=== PATIENT | female | born 1975 | race Caucasian/White ===

== ENCOUNTER 2019-01-16 14:09 | Inpatient (IN) | payer OTHER ==
[~2019-01-16] VITALS: Ht 157.5 cm; Wt 88.9 kg
[~2019-01-16 14:09] MED LIST: FERROUS SULFAT325 MG PO; TORADOL10 MG PO; VIBRAMYCIN 100100 MG PO
[2019-01-16 16:02] LABS: HEMATOCRIT 39.4 % (36.0-48.0); HEMOGLOBIN 13.6 g/dL (12-16); MCH 30.4 pg (26.0-34.0); MCHC 34.5 g/dL (31.0-37.0); MCV 88.1 fL (80.0-100.0); MEAN PLATELET VOLUME 9.2 fL (7.4-10.4); PLATELET COUNT 192 10x3/uL (130-400); RBC 4.47 10x6/uL (4.00-5.40); RDW 12.5 % (11.5-14.5); WBC 21.1 10x3/uL (4.8-10.8)
[2019-01-16 16:36] LABS: EOSINOPHILS 1 % (0-7); LYMPHOCYTES 8 % (15-50); MONOCYTES 5 % (2-11); NEUTROPHILS 86 % (40-80); PLATELET ESTIMATE NORMAL
[2019-01-16 17:57] LABS: ALBUMIN 2.8 g/dL (3.4-5.0); ALKALINE PHOSPHATASE 46 U/L (46-116); ALT (SGPT) 31 U/L (10-68); BILIRUBIN - TOTAL 0.54 mg/dL (0.2-1.3); CALC OSMOLALITY 262 mosm/kg (275-300); CALCIUM 7.5 mg/dL (8.5-10.1); CARBON DIOXIDE 30.1 mmol/L (21.0-32.0); CHLORIDE - SERUM 96 mmol/L (98-107); CREATININE - SERUM 0.6 mg/dL (0.6-1.3); GLUCOSE 82 mg/dL (74-106); PROTEIN - SERUM 5.7 g/dL (6.4-8.2); SODIUM 132 mmol/L (136-145); UREA NITROGEN 11 mg/dL (7-18); eGFR NON AFRICAN AMERICAN > 90 mL/min (90-120)
[2019-01-16 19:54] VITALS: BP 134/77; BMI 35.9
[2019-01-16 20:00] VITALS: BP 110/64
--- NOTE | 2019-01-16 20:00 | NUR ---
ASSESSMENT PER FLOWSHEET. IV PATENT LEFT WRIST WITH LR AT 100CC'S/HR. SITE CLEAR. CYST NOTED TO SCARUM. NO DRAINAGE SEEN FAMILY MEMBERS AT BEDSIDE. SR UP X1 CALL LIGHT WITHIN REACH.
--- NOTE | 2019-01-16 20:42 | NUR ---
C/O PAIN SACRAL AREA. RATES PAIN LEVEL #8. SET UP WIRE TWISTING MACHINE OPERATOR OF DILAUDID WITH SETTINGS AT 0.2MG Q10MIN W/4MG Q4HR L/O. INSTRUCTED PATIENT ON USE OF WIRE TWISTING MACHINE OPERATOR. VERBALIZED UNDERSTANDING.
--- NOTE | 2019-01-16 22:00 | NUR ---
FAMILY MEMBERS STATES PAIN MED IS WORKING WELL.
[2019-01-17] VITALS (7 sets, daily range): BP systolic 107–147; BP diastolic 56–82
--- NOTE | 2019-01-17 | NUR ---
NPO FOR SURGERY IN AM.
[2019-01-17 06:34] LABS: BASOPHILS 0 % (0-2); EOSINOPHILS 0.5 % (0-7); HEMOGLOBIN 14.3 g/dL (12-16); IMMATURE GRANULOCYTES 0.6 % (0-5); LYMPHOCYTES 5.9 % (15-50); MCH 30.6 pg (26.0-34.0); MCV 89.7 fL (80.0-100.0); MEAN PLATELET VOLUME 9.4 fL (7.4-10.4); MONOCYTES 6.7 % (2-11); NEUTROPHILS 86.3 % (40-80); PLATELET COUNT 222 10x3/uL (130-400); RBC 4.68 10x6/uL (4.00-5.40); RDW 12.8 % (11.5-14.5)
--- NOTE | 2019-01-17 06:42 | NUR ---
REMAINS NPO FOR SURGERY.
[2019-01-17 07:00] LABS: ALBUMIN 2.7 g/dL (3.4-5.0); ALKALINE PHOSPHATASE 53 U/L (46-116); ALT (SGPT) 30 U/L (10-68); BILIRUBIN - TOTAL 0.93 mg/dL (0.2-1.3); CALC OSMOLALITY 259 mosm/kg (275-300); CALCIUM 8.3 mg/dL (8.5-10.1); CARBON DIOXIDE 29.3 mmol/L (21.0-32.0); CHLORIDE - SERUM 94 mmol/L (98-107); CREATININE - SERUM 0.6 mg/dL (0.6-1.3); GLUCOSE 93 mg/dL (74-106); POTASSIUM - SERUM 4.4 mmol/L (3.5-5.1); PROTEIN - SERUM 6.6 g/dL (6.4-8.2); SODIUM 130 mmol/L (136-145); UREA NITROGEN 10 mg/dL (7-18); eGFR NON AFRICAN AMERICAN > 90 mL/min (90-120)
--- NOTE | 2019-01-17 07:10 | NUR ---
ALERT AND ORIENTED, RESTING IN BED. FAMILY AT BEDSIDE. PT NPO, SURGERY SCHEDULED TODAY. IV TO LEFT WRIST, LR INFUSING @ 100ML/HR. NO C/O PAIN, DILAUDID INSOLE DOUBLER MANAGING PAIN. UP AD MORGAN. PT DENIES ANY NEEDS AT THIS TIME. CALL LIGHT IN REACH. WILL CONTINUE TO MONITOR.
--- NOTE | 2019-01-17 08:34 | NUR ---
HIBICLENSE BATH DONE BY THIS NURSE. CONSENTS SIGNED ALSO.
--- NOTE | 2019-01-17 18:44 | NUR ---
ALERT AND ORIENTED, RESTING IN BED. NO C/O PAIN. DILAUDID RESEARCH ASSOCIATE MANAGING PAIN. NO S/S OF ACUTE DISTRESS NOTED. PT DENIES ANY NEEDS. CALL LIGHT IN REACH. WILL CONTINUE TO MONITOR.
[2019-01-18 02:02] VITALS: BP 141/82
[2019-01-18 05:04] VITALS: BP 132/76
[2019-01-18 06:46] LABS: BASOPHILS 0 % (0-2); EOSINOPHILS 0.6 % (0-7); HEMATOCRIT 36.1 % (36.0-48.0); HEMOGLOBIN 12.3 g/dL (12-16); IMMATURE GRANULOCYTES 0.5 % (0-5); LYMPHOCYTES 3.9 % (15-50); MCH 30.5 pg (26.0-34.0); MCHC 34.1 g/dL (31.0-37.0); MCV 89.6 fL (80.0-100.0); MEAN PLATELET VOLUME 9.3 fL (7.4-10.4); MONOCYTES 4.9 % (2-11); NEUTROPHILS 90.1 % (40-80); PLATELET COUNT 202 10x3/uL (130-400); RBC 4.03 10x6/uL (4.00-5.40); RDW 12.7 % (11.5-14.5)
[2019-01-18 07:18] LABS: ALBUMIN 2.4 g/dL (3.4-5.0); ALKALINE PHOSPHATASE 56 U/L (46-116); ALT (SGPT) 26 U/L (10-68); CALCIUM 8.3 mg/dL (8.5-10.1); CARBON DIOXIDE 29.9 mmol/L (21.0-32.0); CHLORIDE - SERUM 97 mmol/L (98-107); CREATININE - SERUM 0.7 mg/dL (0.6-1.3); GLUCOSE 119 mg/dL (74-106); PROTEIN - SERUM 6.5 g/dL (6.4-8.2); SODIUM 133 mmol/L (136-145); eGFR NON AFRICAN AMERICAN > 90 mL/min (90-120)
[2019-01-18 07:21] LABS: CALC OSMOLALITY 264 mosm/kg (275-300); UREA NITROGEN 7 mg/dL (7-18); WBC 15.4 10x3/uL (4.8-10.8)
[2019-01-18 07:22] LABS: POTASSIUM - SERUM 3.6 mmol/L (3.5-5.1)
--- NOTE | 2019-01-18 08:00 | NUR ---
ASSESSMENT PER FLOW SHEET. PT IS WITHOUT DISTRESS.MONITOR FOR NEEDS.
--- NOTE | 2019-01-18 08:04 | NUR ---
IV TENDER WITH SWELLING NOTED.IV OUT PER PT REQUEST,CATH TIP INTACT.PT LEFT UNIT WITH VIA WHEELCHAIR
--- NOTE | 2019-01-18 08:20 | NUR ---
BACK ON UNIT IN ROOM.
[2019-01-18 09:37] VITALS: BP 127/87
--- NOTE | 2019-01-18 10:00 | NUR ---
UNABLE TO GET IV RESITE.CALL TO [facility] WITH VASCULAR
--- NOTE | 2019-01-18 11:02 | NUR ---
NIK[facility]AY UNABLE TO PLACE IV.
--- NOTE | 2019-01-18 11:36 | OP ---
PATIENT NAME: YAMIL IRVING MEDICAL RECORD: [id number] :[birth year] LOCATION:D.[id number] ADMISSION DATE:01/16/19 SURGEON: LOUISA MURILLO MD DATE OF OPERATION: 01/17/2019 PREOPERATIVE DIAGNOSIS: Infected pilonidal cyst with abscess. POSTOPERATIVE DIAGNOSIS: Infected pilonidal cyst with abscess. PROCEDURE: Incision and drainage of pilonidal abscess. SURGEON: Louisa Murillo MD REPORT OF PROCEDURE: The patient was placed in the right lateral decubitus position. The perianal and gluteal regions were prepped and draped in sterile fashion. There is already an area of purulent drainage coming from the superior aspect of the gluteal fold. We probed this with culturettes times 2. We could see that this was extending superiorly, so we opened this up over the suction using electrocautery. Once inside, there was noted to be a large pocket present, which did not appear to track anywhere else deep in the tissues. This open pocket was irrigated out thoroughly with peroxide and saline solution. I did not see any evidence of any distinct cystic cavity, but the tissue was very inflamed and there was a lot of oozing from skin and surrounding tissues itself. We applied pressure to the area and treated the skin bleeding with electrocautery. At the conclusion, we packed the wound with peroxide-soaked Kerlix and dressed it with 4 x 4s and an ABD pad. COMPLICATIONS: None. CONDITION: Stable. ANESTHESIA: General endotracheal. BLOOD LOSS: 50 mL. TRANSINT:[id number] Voice Confirmation ID: [id number] DOCUMENT ID: [id number] LOUISA MURILLO MD at 1136 CC: [id number] DICTATION DATE: 01/17/19 1556 FANS CLERK: 01/17/19 1853 ADM IN [facility] [address] [place] [address]
[2019-01-18 13:07] VITALS: BP 111/64
--- NOTE | 2019-01-18 14:39 | MORECARE ---
CASE MANAGEMENT DISCHARGE SUMMARY PATIENT: YAMIL IRVING PAT UNIT: [id number] ADM DATE: 01/16/19 AGE: 43 : [birth year] SEX: F ROOM/BED: D.2219 AUTHOR: CARYDOC PHYSICIAN: REFERRING PHYSICIAN: RYAN ROY MD DATE OF SERVICE: 01/18/19 Discharge Plan Patient Name: YAMIL IRVING Facility: [facility]:[place] : 1975 Planned Disposition: Home Anticipated Discharge Date: Discharge Date: Expected LOS: Initial Reviewer: [id number] Initial Review Date: 01/16/2019 Generated: 01/18/19 3:39 pm Comments DCP- Discharge Planning Updated by [email or web address]: Sarina Kaufman on 01/18/19 1:[address] Patient Name: YAMIL IRVING Admission Status: Elective Accout number: [id number] Admission Date: 01-16-2019 : 1975 Admission Diagnosis:PILONIDAL CYST WITH ABSCESS Attending: RYAN ROY Current LOS: 2 Anticipated DC Date: Planned Disposition: Home Primary Insurance: [employer] MANAGED MEDICAID Discharge Planning Comments: CM met with patient/daughter/boyfriend to complete initial dc planning assessment. CM educated patient on the CM role and verbal consent given by patient to complete assessment. Patient lives at home with her boyfriend where she is independent with her care. At discharge patient plans to return home and feels this is a safe discharge. CM discussed availability of home health, rehab services, and medical equipment. Jean her boyfriend will be her spike driver home. Patient denied known discharge needs at this time. CM will continue to follow and will assist as needed with dc plans/needs. Steel Rod Buster: Sarina Kaufman DCPIA - Discharge Planning Initial Assessment Updated by [email or web address]: Sarina Kaufman on 01/18/19 2:34 pm * Is the patient Alert and Oriented? Yes * How many steps to enter\exit or inside your home? * PCP B[facility]Z * Pharmacy [facility] * Preadmission Environment Home with Family * ADLs Independent * Equipment None * List name and contact numbers for known caregivers / representatives who currently or will assist patient after discharge: LUCIANA IRVING [phone] * Verbal permission to speak to the caregivers and representatives has been obtained from the patient. N/A * Community resources currently utilized None * Additional services required to return to the preadmission environment? No * Can the patient safely return to the preadmission environment? Yes * Has this patient been hospitalized within the prior 30 days at any hospital? No Patient Name: YAMIL IRVING Page 07500 at 1439 All edits/amendments must be made on the electronic document DICTATION DATE: 01/18/191438 HEALTH AND FITNESS INSTRUCTOR: MEGHNA 01/18/191438 RPT#: [id number] DC DATE: STATUS: ADM IN [facility] [address] [place] [address] END OF REPORT
--- NOTE | 2019-01-18 15:13 | NUR ---
WENT IN TO GIVE TORADOL ORDERED. PT WISHES FOR ME TO WAIT. STATES SHE IS GOING OUTSIDE WITH FAMILY VIA WHEELCHAIR. WANTS SHOWER WHEN SHE RETURNS.
--- NOTE | 2019-01-18 15:45 | NUR ---
BACK TO ROOM
--- NOTE | 2019-01-18 17:55 | NUR ---
GGOING OFF UNIT WITH FAILY VIA WHEELCHAIR.
[2019-01-18 18:14] VITALS: BP 102/63
[2019-01-18 21:09] VITALS: BP 111/86
[2019-01-19 01:30] VITALS: BP 99/58
[2019-01-19 04:12] LABS: BASOPHILS 0 % (0-2); EOSINOPHILS 2.5 % (0-7); HEMATOCRIT 31.9 % (36.0-48.0); HEMOGLOBIN 10.9 g/dL (12-16); IMMATURE GRANULOCYTES 0.5 % (0-5); LYMPHOCYTES 13.7 % (15-50); MCH 30.4 pg (26.0-34.0); MCHC 34.2 g/dL (31.0-37.0); MCV 89.1 fL (80.0-100.0); MEAN PLATELET VOLUME 9.1 fL (7.4-10.4); MONOCYTES 7.6 % (2-11); NEUTROPHILS 75.7 % (40-80); PLATELET COUNT 217 10x3/uL (130-400); RBC 3.58 10x6/uL (4.00-5.40); RDW 12.6 % (11.5-14.5)
[2019-01-19 04:15] LABS: WBC 8.4 10x3/uL (4.8-10.8)
[2019-01-19 04:25] LABS: ALKALINE PHOSPHATASE 56 U/L (46-116); ALT (SGPT) 21 U/L (10-68); BILIRUBIN - TOTAL 0.36 mg/dL (0.2-1.3); CALC OSMOLALITY 272 mosm/kg (275-300); CALCIUM 8.7 mg/dL (8.5-10.1); CARBON DIOXIDE 29.6 mmol/L (21.0-32.0); CHLORIDE - SERUM 101 mmol/L (98-107); CREATININE - SERUM 0.6 mg/dL (0.6-1.3); GLUCOSE 96 mg/dL (74-106); POTASSIUM - SERUM 3.8 mmol/L (3.5-5.1); PROTEIN - SERUM 5.8 g/dL (6.4-8.2); SODIUM 137 mmol/L (136-145); UREA NITROGEN 10 mg/dL (7-18); eGFR NON AFRICAN AMERICAN > 90 mL/min (90-120)
[2019-01-19 06:00] VITALS: BP 154/97
--- NOTE | 2019-01-19 07:30 | NUR ---
PT RESTING IN BED. DC BEAD PICKER PER PT REQUEST. NO S/S OF ACUTE DISTRESS. CL IN PLACE.
[2019-01-19 08:24] VITALS: BP 141/84
[2019-01-19] MEDS ORDERED: COLACE100 MG PO (13:33)
[2019-01-19] MEDS ORDERED: FLORAJEN3 CAPS460 MG PO (13:34)
[2019-01-19] MEDS ORDERED: Nicoderm [PBKC] TRANSDERM (13:34)
[2019-01-19] MEDS ORDERED: SULFAMETHOXAZOL1 TA2 PO (13:34)
[2019-01-19 13:40] VITALS: BP 129/81
[2019-01-19 14:23] VITALS: Ht 157.5 cm; Wt 88.9 kg
--- NOTE | 2019-01-19 15:21 | MORECARE ---
CASE MANAGEMENT DISCHARGE SUMMARY PATIENT: YAMIL IRVING PAT UNIT: [id number] ADM DATE: 01/16/19 AGE: 43 : [birth year] SEX: F ROOM/BED: D.2219 AUTHOR: CARYDOC PHYSICIAN: REFERRING PHYSICIAN: RYAN ROY MD DATE OF SERVICE: 01/19/19 Discharge Plan Patient Name: YAMIL IRVING Facility: [facility]:[place] : 1975 Planned Disposition: Home Anticipated Discharge Date: Discharge Date: Expected LOS: Initial Reviewer: [id number] Initial Review Date: 01/16/2019 Generated: 01/19/19 4:21 pm Comments DCP- Discharge Planning Updated by [id number]: Sarina Kaufman on 01/18/19 1:[address] Patient Name: YAMIL IRVING Admission Status: Elective Accout number: [id number] Admission Date: 01-16-2019 : 1975 Admission Diagnosis:PILONIDAL CYST WITH ABSCESS Attending: RYAN ROY Current LOS: 2 Anticipated DC Date: Planned Disposition: Home Primary Insurance: [employer] MANAGED MEDICAID Discharge Planning Comments: CM met with patient/daughter/boyfriend to complete initial dc planning assessment. CM educated patient on the CM role and verbal consent given by patient to complete assessment. Patient lives at home with her boyfriend where she is independent with her care. At discharge patient plans to return home and feels this is a safe discharge. CM discussed availability of home health, rehab services, and medical equipment. Jean her boyfriend will be her auto driver home. Patient denied known discharge needs at this time. CM will continue to follow and will assist as needed with dc plans/needs. Shift Supervisor Rn: Sarina Kaufman DCPIA - Discharge Planning Initial Assessment Updated by [email or web address]: Sarina Kaufman on 01/18/19 2:34 pm * Is the patient Alert and Oriented? Yes * How many steps to enter\exit or inside your home? * PCP BENZ * Pharmacy [facility] * Preadmission Environment Home with Family * ADLs Independent * Equipment None * List name and contact numbers for known caregivers / representatives who currently or will assist patient after discharge: LUCIANA IRVING [phone] * Verbal permission to speak to the caregivers and representatives has been obtained from the patient. N/A * Community resources currently utilized None * Additional services required to return to the preadmission environment? No * Can the patient safely return to the preadmission environment? Yes * Has this patient been hospitalized within the prior 30 days at any hospital? No Last DP export: 01/18/19 1:39 pm Patient Name: YAMIL IRVING Page 47829 at 1521 All edits/amendments must be made on the electronic document DICTATION DATE: 01/19/19 1520 JUDICIAL LAW CLERK: MEGHNA 01/19/19 1520 RPT#: [id number] DC DATE: STATUS: ADM IN [facility] [address] [place] [address] END OF REPORT
--- NOTE | 2019-01-19 15:30 | MORECARE ---
CASE MANAGEMENT DISCHARGE SUMMARY PATIENT: YAMIL IRVING PAT UNIT: [id number] ADM DATE: 01/16/19 AGE: 43 : [birth year] SEX: F ROOM/BED: D.2219 AUTHOR: CARYDOC PHYSICIAN: REFERRING PHYSICIAN: RYAN ROY MD DATE OF SERVICE: 01/19/19 Discharge Plan Patient Name: YAMIL IRVING Facility: [facility]:[place] : 1975 Planned Disposition: Home Anticipated Discharge Date: Discharge Date: Expected LOS: Initial Reviewer: [id number] Initial Review Date: 01/16/2019 Generated: 01/19/19 4:30 pm Comments DCP- Discharge Planning Updated by [id number]: Sarina Kaufman on 01/18/19 1:[address] Patient Name: YAMIL IRVING Admission Status: Elective Accout number: [id number] Admission Date: 01-16-2019 : 1975 Admission Diagnosis:PILONIDAL CYST WITH ABSCESS Attending: RYAN ROY Current LOS: 2 Anticipated DC Date: Planned Disposition: Home Primary Insurance: [employer] MANAGED MEDICAID Discharge Planning Comments: CM met with patient/daughter/boyfriend to complete initial dc planning assessment. CM educated patient on the CM role and verbal consent given by patient to complete assessment. Patient lives at home with her boyfriend where she is independent with her care. At discharge patient plans to return home and feels this is a safe discharge. CM discussed availability of home health, rehab services, and medical equipment. Jean her boyfriend will be her driver trainee home. Patient denied known discharge needs at this time. CM will continue to follow and will assist as needed with dc plans/needs. Construction Superintendent: Sarina Kaufman DCPIA - Discharge Planning Initial Assessment Updated by [email or web address]: Sarina Kaufman on 01/18/19 2:34 pm * Is the patient Alert and Oriented? Yes * How many steps to enter\exit or inside your home? * PCP BENZ * [facility]acy [facility] * Preadmission Environment Home with Family * ADLs Independent * Equipment None * List name and contact numbers for known caregivers / representatives who currently or will assist patient after discharge: LUCIANA IRVING [phone] * Verbal permission to speak to the caregivers and representatives has been obtained from the patient. N/A * Community resources currently utilized None * Additional services required to return to the preadmission environment? No * Can the patient safely return to the preadmission environment? Yes * Has this patient been hospitalized within the prior 30 days at any hospital? No External Providers External Provider: [facility] Next Contact Date: Service Request Date: Service Type: Resolution: Reviewer: Comments: External Provider: [facility] Next Contact Date: Service Request Date: Service Type: Resolution: Reviewer: Comments: Last DP export: 01/19/19 2:21 pm Patient Name: YAMIL IRVING Page 17939 at 1530 All edits/amendments must be made on the electronic document DICTATION DATE: 01/19/191528 SENIOR MEDICAL BILLING SPECIALIST: MEGHNA 01/19/19 1529 RPT#: [id number] DC DATE: STATUS: ADM IN [facility] [address] [place] [address] END OF REPORT
[2019-01-19] MEDS ORDERED: HYDROCODON-ACE1 EA10 PO (16:09)
[2019-01-19 16:45] VITALS: BP 119/80
--- NOTE | 2019-01-19 16:50 | MORECARE ---
CASE MANAGEMENT DISCHARGE SUMMARY PATIENT: YAMIL IRVING PAT UNIT: [id number] ADM DATE: 01/16/19 AGE: 43 : 79 SEX: F ROOM/BED: D.2219 AUTHOR: TITUS TOWNSEND PHYSICIAN: REFERRING PHYSICIAN: RYAN ROY MD DATE OF SERVICE: 01/19/19 Discharge Plan Patient Name: YAMIL IRVING Facility: [facility]:[place] : 1975 Planned Disposition: Home Anticipated Discharge Date: Discharge Date: Expected LOS: Initial Reviewer: [id number] Initial Review Date: 01/16/2019 Generated: 01/19/19 5:50 pm Comments DCP- Discharge Planning Updated by [email or web address]: Sarina Kaufman on 01/19/19 3:[address] PATIENT DC HOME WITH [employer] [facility] [place] SIGNED AND PLACE IN CHART 3 IN ONE BEDSIDE COMMODE AHS BEEN DELIVER TO THE ROOM DCP- Discharge Planning Updated by [id number]: Sarina Kaufman on 01/18/19 1:[address] Patient Name: YAMIL IRVING Admission Status: Elective Accout number: [id number] Admission Date: 01-16-2019 : 1975 Admission Diagnosis:PILONIDAL CYST WITH ABSCESS Attending: RYAN ROY Current LOS: 2 Anticipated DC Date: Planned Disposition: Home Primary Insurance: [employer] MANAGED MEDICAID Discharge Planning Comments: CM met with patient/daughter/boyfriend to complete initial dc planning assessment. CM educated patient on the CM role and verbal consent given by patient to complete assessment. Patient lives at home with her boyfriend where she is independent with her care. At discharge patient plans to return home and feels this is a safe discharge. CM discussed availability of home health, rehab services, and medical equipment. Jean her boyfriend will be her clark driver home. Patient denied known discharge needs at this time. CM will continue to follow and will assist as needed with dc plans/needs. Senior Etl Developer: Sarina Kaufman DCPIA - Discharge Planning Initial Assessment Updated by [email or web address]: Sarina Kaufman on 01/18/19 2:34 pm * Is the patient Alert and Oriented? Yes * How many steps to enter\exit or inside your home? * PCP BENZ * [facility] * Preadmission Environment Home with Family * ADLs Independent * Equipment None * List name and contact numbers for known caregivers / representatives who currently or will assist patient after discharge: LUCIANA IRVING [phone] * Verbal permission to speak to the caregivers and representatives has been obtained from the patient. N/A * Community resources currently utilized None * Additional services required to return to the preadmission environment? No * Can the patient safely return to the preadmission environment? Yes * Has this patient been hospitalized within the prior 30 days at any hospital? No Last DP export: 01/19/19 2:30 pm Patient Name: YAMIL IRVING Page 82698 at 1650 All edits/amendments must be made on the electronic document DICTATION DATE: 01/19/191649 MANAGER ENT: MEGHNA 01/19/191649 RPT#: [id number] DC DATE: STATUS: ADM IN [facility] [address] [place] [address] END OF REPORT
--- NOTE | 2019-01-19 17:27 | NUR ---
DC MIDLINE WITH TIP INTACT. PACKED WOUND PER MD ORDER. DC INSTRUCTIONS AND EDUCATION DONE WITH PT. NO S/S OF ACUTE DISTRESS. DAUGHTERS CARRIED ALL BELONGINGS DOWN. PT TAKEN DOWN TO LOBBY VIA WC.
--- NOTE | 2019-01-22 14:15 | MORECARE ---
CASE MANAGEMENT DISCHARGE SUMMARY PATIENT: YAMIL IRVING PAT UNIT: [id number] ADM DATE: 01/16/19 AGE: 43 : [birth year] SEX: F ROOM/BED: D.2219 AUTHOR: TITUS TOWNSEND PHYSICIAN: REFERRING PHYSICIAN: RYAN ROY MD DATE OF SERVICE: 01/22/19 Discharge Plan Patient Name: YAMIL IRVING Facility: [facility]:[place] : 1975 Planned Disposition: Home Anticipated Discharge Date: Discharge Date: 01/19/2019 Expected LOS: Initial Reviewer: [id number] Initial Review Date: 01/16/2019 Generated: 01/22/19 3:15 pm Comments DCP- Discharge Planning Updated by [email or web address]: Sarina Kaufman on 01/19/19 3:[address] PATIENT DC HOME WITH [employer] [facility], [place] SIGNED AND PLACE IN CHART 3 IN ONE BEDSIDE COMMODE AHS BEEN DELIVER TO THE ROOM DCP- Discharge Planning Updated by [email or web address]: Sarina Kaufman on 01/18/19 1:[address] Patient Name: YAMIL IRVING Admission Status: Elective Accout number: [id number] Admission Date: 01-16-2019 : 1975 Admission Diagnosis:PILONIDAL CYST WITH ABSCESS Attending: RYAN ROY Current LOS: 2 Anticipated DC Date: Planned Disposition: Home Primary Insurance: [employer] MANAGED MEDICAID Discharge Planning Comments: CM met with patient/daughter/boyfriend to complete initial dc planning assessment. CM educated patient on the CM role and verbal consent given by patient to complete assessment. Patient lives at home with her boyfriend where she is independent with her care. At discharge patient plans to return home and feels this is a safe discharge. CM discussed availability of home health, rehab services, and medical equipment. Jean her boyfriend will be her parts driver home. Patient denied known discharge needs at this time. CM will continue to follow and will assist as needed with dc plans/needs. Industrial Coffee Grinder: Sarina Kaufman DCPIA - Discharge Planning Initial Assessment Updated by [email or web address]: Sarina Kaufman on 01/18/19 2:34 pm * Is the patient Alert and Oriented? Yes * How many steps to enter\exit or inside your home? * PCP BENZ * [facility] * Preadmission Environment Home with Family * ADLs Independent * Equipment None * List name and contact numbers for known caregivers / representatives who currently or will assist patient after discharge: LUCIANA IRVING [phone] * Verbal permission to speak to the caregivers and representatives has been obtained from the patient. N/A * Community resources currently utilized None * Additional services required to return to the preadmission environment? No * Can the patient safely return to the preadmission environment? Yes * Has this patient been hospitalized within the prior 30 days at any hospital? No Last DP export: 01/19/19 3:50 pm Patient Name: YAMIL IRVING Page 65035 at 1415 All edits/amendments must be made on the electronic document DICTATION DATE: 01/22/194 PETROLEUM REFINING EQUIPMENT OPERATOR: MEGHNA 01/22/19 1414 RPT#: [id number] DC DATE:01/19/19 STATUS: DIS IN [facility] [address] [place] [address] END OF REPORT
== END 2019-01-19 17:29 | disposition home health service (06) | DRG 581 ==
LOC: D.MS 14:09 → D.SDCHOLD 14:09 → OBSVTIME 14:11 → D.MS 14:15
PROVIDERS: Surgery; ADMIT Emergency Medicine; ATTEND Emergency Medicine
PROC: 0J990ZZ Drainage of Buttock Subcutaneous Tissue and Fascia, Open Approach (ICD-10-PCS; principal; 2019-01-17 12:00)
DX: L05.01 Pilonidal cyst with abscess (principal); E86.0 Dehydration; E66.9 Obesity, unspecified; F12.90 Cannabis use, unspecified, uncomplicated

== ENCOUNTER 2019-01-24 12:55 | Outpatient (CLI) | payer OTHER ==
[~2019-01-24] VITALS: Ht 154.9 cm; Wt 86.4 kg
[~2019-01-24 12:55] MED LIST changes: +COLACE100 MG PO; +FLORAJEN3 CAPS460 MG PO; +HYDROCODON-ACE1 EA10 PO; +Nicoderm [PBKC] TRANSDERM; +SULFAMETHOXAZOL1 TA2 PO
[2019-01-24 13:23] VITALS: BP 155/107; Ht 154.9 cm; Wt 86.4 kg
--- NOTE | 2019-01-24 14:07 | NUR ---
PT NOTIFIED ME AT THIS TIME THAT SHE WAS ABLE TO HAVE BOWEL MOVEMENT. UPON INSPECTION PT PASSED 4 GOLF BALL SIZED PIECES OF HARD STOOL. PT ALSO PASSED ABOUT 2 GOLFBALL SIZED AMOUNT OF SOFT STOOL. PT REPORTS MARKED RELIEF OF ABDOMINAL PRESSURE, AND STATES THAT SHE FEELS "MUCH BETTER."
== END 2019-01-24 14:15 | disposition home or self-care (01) ==
LOC: D.OPS 12:55
PROVIDERS: ATTEND Family Medicine
DX: K56.41 Fecal impaction (principal)